=== PATIENT | female | born 1970 | race African-American/Black ===

== ENCOUNTER 2017-04-04 16:36 | Emergency (ER) | payer MEDICAID ==
[~2017-04-04] VITALS: Ht 162.6 cm; Wt 63.5 kg
[2017-04-04 16:59] VITALS: BP 147/92
[2017-04-04] MEDS ORDERED: GABAPENTIN300 MG ORAL (17:16)
[2017-04-04] MEDS ORDERED: MULTIVITAMINS1 EAC2 ORAL (17:16)
[2017-04-04 17:33] VITALS: BP 147/92
--- NOTE | 2017-04-04 21:07 | Emergency Room Report ---
History of Present Illness General Chief Complaint: General Complaint Source: Patient Present Illness HPI The patient is a 46-year-old female presenting for numbness of the left foot. This began 3 days prior for no known reason. She denies history of diabetes. 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 Pain is a 3/10 dull ache to this region. No known provoking or relieving factors. She has not taken any medications for this. She states that she saw her primary doctor earlier this week and had blood work done. She will followup with him within the next week. She denies any other symptoms including nausea, vomiting, fever, chills, rash, calf pain or swelling Patient History Past Medical History: see triage record Pertinent Family History: none Now: No Reviewed Nursing Documentation: PMH: Agreed, PSxH: Agreed Nursing Documentation-PMH Past Medical History: No Stated History Review of Systems All Other Systems: negative except mentioned in HPI Physical Exam Vital Signs Date Time Temp Pulse Resp B/P (MAP) Pulse Ox O2 Delivery O2 Flow Rate FiO2 04/04/17 16:54 98.2 96 16 147/92 97 Room Air Sp02 EP Interpretation: reviewed, normal General Appearance: no apparent distress, alert, GCS 15, non-toxic Head: normocephalic, atraumatic Eyes: bilateral eye normal inspection, bilateral eye PERRL ENT: hearing grossly normal, normal pharynx, no angioedema, normal voice Musculoskeletal: back normal, gait/station normal, normal range of motion, no calf tenderness Neurologic: alert, oriented x3, responsive, motor strength/tone normal, sensory intact, speech normal Psychiatric: judgement/insight normal, memory normal, mood/affect normal, no suicidal/homicidal ideation Skin: normal color, no rash, warm/dry, well hydrated Medical Decision Making PA Attestation Dr. Chang is my supervising physician. Patient management was discussed with my supervising physician Diagnostic Impression: Primary Impression: Peripheral neuropathy ER Course The patient is a 46-year-old female presenting for numbness of the left foot. Ddx considered include but not limited to Vitamin deficiency, venous insufficiency, lymphadenopathy, peripheral neuropathy, sprain/strain, fracture, contusion PE: NAD Left leg: No deformity. No edema or ecchymosis. No skin changes. No varicosity. No calf tenderness. Sensation is intact to light touch from the lower leg to the foot. Dorsalis pedis pulse 2+ Normal gait The patient is discharged home prescription for multivitamin and gabapentin. She will FU with PMD VIKTORIYA. ER precautions given Last Vital Signs Date Time Temp Pulse Resp B/P (MAP) Pulse Ox O2 Delivery O2 Flow Rate FiO2 04/04/17 17:33 98.2 84 16 147/92 97 Room Air Status: improved Disposition: HOME, SELF-CARE Condition: Improved Scripts Gabapentin* (GABAPENTIN*) 300 Mg Capsule 300 MG ORAL THREE TIMES A DAY, #60 CAP 0 Refills Prov: CATRACHO CAVAZOS 04/04/17 Multivitamins* (MULTIVITAMINS*) 1 Each Tablet 1 TAB ORAL DAILY, #30 TAB 0 Refills Prov: CATRACHO CAVAZOS 04/04/17 Referrals: [facility],REFERRING (PCP) Patient Instructions: Neuropathic Pain Additional Instructions: I discussed my findings with the patient. All questions and concerns have been answered. Treatment and medication compliance have been addressed. I advised the patient that they need to follow up with PMD in 3-5 days. Return to ED if symptoms worsen, new symptoms arise, or if needed for any reason. Patient verbalized understanding of discharge instructions. CATRACHO CAVAZOS Apr 04, 2017 21:07
== END 2017-04-04 17:33 | disposition home or self-care (01) ==
LOC: EMR 17:00
DX: G62.9 Polyneuropathy, unspecified (principal)
CPT/HCPCS: 99284